=== PATIENT | male | born 1960 | race Caucasian/White ===

== ENCOUNTER 2023-09-21 11:31 | Emergency (ER) | payer OTHER, SELFPAY ==
--- NOTE | 2023-09-21 11:33 | XRR_ITS ---
PROCEDURE INFORMATION: Exam: XR Chest Exam date and time: 09/21/2023 11:47 AM Age: 62 years old Clinical indication: Cough and dyspnea; Additional info: Dyspnea/cough TECHNIQUE: Imaging protocol: Radiologic exam of the chest. Views: 1 view. COMPARISON: No relevant prior studies available. FINDINGS: Lungs: Unremarkable. No consolidation. Pleural spaces: Unremarkable. No pleural effusion. No pneumothorax. Heart/Mediastinum: Unremarkable. No cardiomegaly. Bones/joints: Unremarkable. XR/XR chest 1V portable [id number] IMPRESSION: No acute findings.
--- NOTE | 2023-09-21 11:36 | ECG_ITS ---
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 Measurements Intervals [place] Rate: 60 P: 7 IN: 130 QRS: 19 QRSD: 89 T: 104 QT: 381 QTc: 383 Interpretive Statements SINUS RHYTHM NONSPECIFIC ST & T-WAVE ABNORMALITY No previous ECG available for comparison Electronically Signed On 09-21-2023 21:41:16 CDT by Reynold Campbell M.D. [email or web address] LLgulfport behavioral health systemQcept [email or web address] grant medical [email or web address]/[id number] f
[2023-09-21 11:39] VITALS: BP 222/133; PULSE 61; RESP 16; O2SAT 99
[2023-09-21 11:46] LABS: Basophils # 0.1 10^3/uL (0.0-0.1); Eosinophils # 0.3 10^3/uL (0.0-0.8); Eosinophils % 3.8 %; Hematocrit 46.2 % (37-53); Lymphocytes % 24.1 %; Mean Corpuscular HGB Conc 32.3 g/dL (30-55); Mean Corpuscular Hemoglobin 26.6 pg (27-33); Mean Corpuscular Volume 82.5 fl (82-101); Mean Platelet Volume 10.8 fL (7.4-10.4); Monocytes # 0.5 10^3/uL (0.2-0.9); Monocytes % 5.4 %; Neutrophils # 5.44 10^3/uL (1.8-7.7); Neutrophils % 65.2 %; Nucleated Red Blood Cells % 0 %; Platelet Count 218 10^3/cmm (157-399); Red Cell Distribution Width 12.7 % (12.1-15.1); White Blood Count 8.34 10^3/uL (3.29-11.43)
--- NOTE | 2023-09-21 11:49 | W.ED.CHESTPA ---
HPI - Chest Pain General: Chief Complaint: Chest Pain Stated Complaint: Chest pain High BP Time Seen by Provider: 09/21/23 11:32 Source: patient Mode of arrival: EMS History of Present Illness: 62-year-old male presents emergency room complaining intermittent chest pain. He also is reporting PND he has a history of sleep apnea reduce logistical issues around his divorce he stopped using his CPAP about 3-1/2 years ago and has noticed worsening problems with sleep apnea and waking up suddenly short of breath. He has not had any chest pain exacerbated by activity. No chest pain at this time he incidentally also notes that he has some groin pain at times he thinks he has a hernia. He was at the [place] clinic today his blood pressure was markedly elevated and he was referred to the emergency room. He has not been taking any of his medications recently. MD complaint: chest pain Associated symptoms: Reports nausea; Deny abdominal pain, diaphoresis, dyspnea, fever(s), leg edema, palpitations, sense of impending doom, syncope or vomiting Treatment prior to arrival: none Review of Systems Const: Denies: fever(s), chills or diaphoresis Card: Denies: chest pain, palpitations or syncope Resp: Denies: dyspnea GI: Reports: nausea; Denies: abdominal pain or vomiting : Denies: dysuria, urinary frequency or urinary urgency Musc: Denies: neck pain or back pain Skin/Breast: Denies: rash Physical Exam Const: COMMON NORMALS: no acute distress GENERAL APPEARANCE: cooperative and comfortable ORIENTATION/CONSCIOUSNESS: Yes awake, Yes oriented to person, Yes oriented to place and Yes oriented to time HENMT: COMMON NORMALS: normocephalic, atraumatic and hearing grossly normal bilaterally HEAD & SCALP: normocephalic and atraumatic Resp: COMMON NORMALS: normal respiratory effort, No retractions, No use of accessory muscles and clear to auscultation bilaterally AUSCULTATION: clear to auscultation bilaterally Cardio: COMMON NORMALS: regular rate, regular rhythm and No murmurs present (Cardio) RATE: regular rate RHYTHM: regular rhythm GI: COMMON NORMALS: Soft to palpation and No hepatosplenomegaly present AUSCULTATION: Yes normoactive bowel sounds PALPATION: Yes Soft to palpation, No Tenderness to palpation present (GI), No Guarding due to palpation present (GI) and Yes No hepatosplenomegaly present Extremity: COMMON NORMALS: normal to inspection, capillary refill normal, no clubbing, cyanosis or edema, no calf tenderness and no pedal edema Neuro: SENSORIUM/ORIENTATION: Yes oriented to person, Yes oriented to place and Yes oriented to time Skin: COMMON NORMALS: no rashes or lesions noted GENERAL SKIN EXAM: no rashes or lesions noted Course Vital Signs: Vital signs: Vital Signs Pulse Rate 85 09/21/23 14:54 Respiratory Rate 18 09/21/23 14:23 Blood Pressure 188/100 09/21/23 14:54 Pulse Oximetry 96 09/21/23 14:54 Oxygen Delivery Me thod Room Air 09/21/23 14:54 MDM - Chest Pain Medical Decision Making Labs and imaging reviewed. EKG does not show any acute ST changes cardiac enzymes trended negative. Blood pressure was markedly elevated improved with medications given will discharge home on amlodipine 5 mg daily Toprol-XL 25 mg daily baby aspirin daily and set patient up for outpatient stress testing. Medical Records I reviewed the patient's medical records. Lab Data I reviewed the patient's lab results. 09/21/23 11:39 09/21/23 11:39 Radiology Impressions Chest X-Ray 09/21/23 11:33 IMPRESSION: No acute findings. Laboratory Results WBC 8.34 10^3/uL (3.29-11.43) 09/21/23 11:39 RBC 5.60 10^6/uL (3.85-5.65) 09/21/23 11:39 Hgb 14.90 g/dL (11.27-16.99) 09/21/23 11:39 Hct 46.2 % (37-53) 09/21/23 11:39 MCV 82.5 fl (82-101) 09/21/23 11:39 MCH 26.6 pg (27-33) L 09/21/23 11:39 MCHC 32.3 g/dL (30-55) 09/21/23 11:39 RDW 12.7 % (12.1-15.1) 09/21/23 11:39 Plt Count 218 10^3/cmm (157-399) 09/21/23 11:39 MPV 10.8 fL (7.4-10.4) H 09/21/23 11:39 Neut % (Auto) 65.2 % 09/21/23 11:39 Lymph % (Auto) 24.1 % 09/21/23 11:39 [place] % (Auto) 5.4 % 09/21/23 11:39 Eos % (Auto) 3.8 % 09/21/23 11:39 Baso % (Auto) 1.0 % 09/21/23 11:39 Neut # (Auto) 5.44 10^3/uL (1.8-7.7) 09/21/23 11:39 Lymph # (Auto) 2.0 10^3/uL (0.8-4.8) 09/21/23 11:39 [place] # (Auto) 0.5 10^3/uL (0.2-0.9) 09/21/23 11:39 Eos # (Auto) 0.3 10^3/uL (0.0-0.8) 09/21/23 11:39 Baso # (Auto) 0.1 10^3/uL (0.0-0.1) 09/21/23 11:39 Nucleated RBC % (auto) 0 % 09/21/23 11:39 Nucleated RBCs # 0.0 /100WBC 09/21/23 11:39 Sodium 140 mmol/L (136-145) 09/21/23 11:39 Potassium 4.8 mmol/L (3.5-5.1) 09/21/23 11:39 Chloride 103 mmol/L (98-107) 09/21/23 11:39 Carbon Dioxide 27 mmol/L (22-29) 09/21/23 11:39 Anion Gap 14.8 (5-19) 09/21/23 11:39 BUN 10 mg/dL (8-23) 09/21/23 11:39 Creatinine 0.9 mg/dL (0.7-1.2) 09/21/23 11:39 GFR Calculation 86.1 mL/min (90-130) L 09/21/23 11:39 Glucose 93 mg/dL (65-115) 09/21/23 11:39 Calculated Osmolality 289 mOsm/kg (285-295) 09/21/23 11:39 Calcium 10.2 mg/dL (8.5-10.5) 09/21/23 11:39 Total Bilirubin 0.4 mg/dL (0.15-1.2) 09/21/23 11:39 AST 22 U/L (0-40) 09/21/23 11:39 ALT 23 U/L (0-41) 09/21/23 11:39 Alkaline Phosphatase 98 U/L (40-130) 09/21/23 11:39 Troponin T Baseline 12 ng/L (0-15) 09/21/23 11:39 Troponin T 120 Minute 11.66 ng/L (0-15) 09/21/23 13:25 Delta Troponin T -0.34 ABS# (0-10) L 09/21/23 13:25 Total Protein 7.3 g/dL (6.6-8.7) 09/21/23 11:39 Albumin 4.6 g/dL (3.5-5.2) 09/21/23 11:39 Globulin 2.7 g/dL (1.3-4.6) 09/21/23 11:39 All radiology interpretation(s) finalized by discharge Discharge Plan Discharge Patient Disposition: Home Clinical Impression: Atypical chest pain, Hypertension Condition: Stable Prescriptions: New Toprol XL 25 mg tablet extended release 24 hr 25 mg PO DAILY Qty: 30 0RF amlodipine 5 mg tablet 5 mg PO DAILY Qty: 30 0RF aspirin 81 mg tablet,delayed release (DR/EC) 81 mg PO DAILY Qty: 30 0RF Discharge Orders: Discharge ED (Routine); Ordered 09/21/23 Ordered By: Noe Ash Referrals: Terrell Rutledge MD [Primary Care Provider] - Discharge Diet: Cardiac Discharge Activity: Limit activity as instructed Patient Instructions: Opioid Safety, Pain Management Activity Restrictions/Additional Instructions: Thank you for choosing [facility] for your healthcare needs today. Please realize this is an emergency room and that we are providing you with a medical screening exam and this may not be complete and all inclusive of all the testing and or work up that you may need to determine your ailment or severity of your illness. It is very important that you follow up as instructed or that you return to the Emergency Department should you have concerns or if your condition changes or worsens in any way. You are seen today with elevated blood pressure and complaints of intermittent chest pain. Your cardiac enzymes and EKG were normal. Your blood pressure was markedly elevated and did come down with medications given. Recommend to start amlodipine 5 mg daily metoprolol XL 2025 mg daily. Additionally she take a baby aspirin daily. supplemental manager will make arrangements for you to have a outpatient Lexiscan sestamibi stress test. Finally would recommend you follow-up with your primary care doctor soon as you are able to reevaluate for your CPAP machine. You should follow up with your primary care doctor within a week to reevaluate blood pressure. Return to the emergency room for further problems. 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
[2023-09-21 12:04] LABS: Troponin(5th) Baseline 12 ng/L (0-15)
[2023-09-21 12:08] LABS: Alanine Aminotransferase 23 U/L (0-41); Albumin Level 4.6 g/dL (3.5-5.2); Alkaline Phosphatase 98 U/L (40-130); Blood Urea Nitrogen 10 mg/dL (8-23); Calcium 10.2 mg/dL (8.5-10.5); Carbon Dioxide 27 mmol/L (22-29); Chloride 103 mmol/L (98-107); Globulin 2.7 g/dL (1.3-4.6); Glomerular Filtration Rate 86.1 mL/min (90-130); Glucose 93 mg/dL (65-115); Osmolality Calculated 289 mOsm/kg (285-295); Sodium 140 mmol/L (136-145); Total Bilirubin 0.4 mg/dL (0.15-1.2); Total Protein 7.3 g/dL (6.6-8.7)
[2023-09-21 12:09] LABS: Anion Gap 14.8 (5-19); Aspartate Amino Transferase 22 U/L (0-40); Potassium 4.8 mmol/L (3.5-5.1)
[2023-09-21] MEDS: hyDRALAzine 20 mg/mL INJ 1 mL IVP (12:19)
[2023-09-21 12:21] VITALS: BP 191/134; PULSE 66; RESP 18; O2SAT 98
[2023-09-21 12:40] VITALS: BP 175/133; PULSE 91; RESP 16; O2SAT 98
--- NOTE | 2023-09-21 12:40 | PC.NURSE ---
PATIENT COMPLAINING OF FACIAL REDNESS AND NOT FEELING WELL AFTER MEDICATION. PATIENT STATES THAT HIS HEART FEELS FUNNY. VITAL SIGN STABLE AND WNL. PATIENT TALKING APPROPRIATELY AT BEDSIDE WITH SON. PROVIDER NOTIFIED.
[2023-09-21] MEDS: amlodipine 10 mg Tablet PO (12:48)
[2023-09-21] MEDS: labetalol 5 mg/mL SDV 20mL 10 MG IVP (12:48)
[2023-09-21 12:50] VITALS: BP 210/112
--- NOTE | 2023-09-21 13:33 | ECG_ITS ---
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 Measurements Intervals [place] Rate: 77 P: 38 TN: 131 QRS: 9 QRSD: 92 T: 56 QT: 400 QTc: 453 Interpretive Statements SINUS RHYTHM LEFT VENTRICULAR HYPERTROPHY AND ST-T CHANGE [VOLTAGE CRITERIA PLUS ST/T ABNORMALITY] POSSIBLE INFERIOR MYOCARDIAL INFARCTION , PROBABLY OLD [30 ms Q WAVE IN II/aVF] Compared to ECG 09/21/2023 11:36:04 Left ventricular hypertrophy now present ST (T wave) deviation now present Myocardial infarct finding now present T-wave abnormality no longer present Electronically Signed On 09-21-2023 21:48:14 CDT by Reynold Campbell M.D. [id number]
[2023-09-21 13:52] LABS: Troponin 5 2HR 11.66 ng/L (0-15)
[2023-09-21 13:54] LABS: Troponin 5 2HR Delta -0.34 ABS# (0-10)
[2023-09-21] MEDS: hyDRALAzine 20 mg/mL INJ 1 mL 10 MG IVP (14:21)
[2023-09-21 14:23] VITALS: BP 173/107; PULSE 76; RESP 18; O2SAT 97
[2023-09-21 14:54] VITALS: BP 188/100; PULSE 85; O2SAT 96
--- NOTE | 2023-10-05 08:10 | DCPLANNER ---
Lexiscan Stress test out patient request sent to centralized scheduling
== END 2023-09-21 15:26 | disposition home or self-care (01) ==
PROVIDERS: Emergency Provider Family Medicine; PCP Family Medicine Adult Medicine
DX: R07.89 Other chest pain (principal); I10 Essential (primary) hypertension
CPT/HCPCS: 36415; 71045; 80053; 84484; 85025; 93005; 96374; 96375; 96376; 99285; J0360; J3490